=== PATIENT | male | born 2005 ===

== ENCOUNTER 2023-06-07 14:00 | Outpatient (RCR) | payer BC, SELFPAY | END 2023-09-12 14:55 | disposition home or self-care (01) | DX: M76.61 Achilles tendinitis, right leg (principal); M25.571 Pain in right ankle and joints of right foot; M25.671 Stiffness of right ankle, not elsewhere classified; Z51.89 Encounter for other specified aftercare | CPT/HCPCS: 97110; 97140; 97161 ==

== ENCOUNTER 2023-12-18 11:31 | Outpatient (RCR) | payer OTHER, SELFPAY | END 2024-04-16 23:59 | disposition home or self-care (01) | PROVIDERS: Visit Provider Family Medicine | DX: M23.50 Chronic instability of knee, unspecified knee (principal); Z51.89 Encounter for other specified aftercare | CPT/HCPCS: 97110; 97161 ==